=== PATIENT | male | born 1980 | race Caucasian/White ===

== ENCOUNTER 2017-04-21 07:05 | Outpatient (CLI) | payer MEDICARE, MEDICAID ==
[~2017-04-21] VITALS: Ht 172.7 cm; Wt 93.7 kg
--- NOTE | ~2017-04-21 | CATH ---
Cardiac Diagnostic + PCI Report Demographics Patient Name GENIA Acosta Gender Male Date of 1980 Age 36 year(s) Patient Number [id number] Date of Study 04/21/2017 Visit Number [id number] Room Number G63[address] [place] [id number] Ht 172.72 cm Wt 94.1 kg Referring Umm C[place] Primary Physician Physician Raman HAGAN Performing Primo Apodaca MD Secondary Physician Physician Diagnostic Primo Apodaca MD Assisting Physician Physician Interventional Primo Apodaca MD Physician Dye House Supervisor Physician Findings and Conclusions Diagnostic Findings and Conclusion Severe 1 vessel CAD. Diagnostic Recommendations PCI sub totalled LAD. Interventional Findings and Conclusion 0.014 Prowater 2 X 15 Emerge 2.5 X 24 to 2.66 with 0% residual. Interventional Recommendations DAPT X 1 year. Manual pressure for hemostasis. Risk factor modification. Procedure Description The patient was brought to the diagnostic cardiac catheterization-EP laboratory in the fasting, non-sedated state. Informed consent was obtained in the written and verbal form after the risks and benefits were explained. The patient had no further questions and agreed to proceed. The planned puncture-incision site(s) were shaved and prepped with ChloraPrep and draped in the usual sterile manner. Conscious sedation and supplemental oxygen, were delivered by a registered nurse under physician guidance. Surface ECG rhythm, blood pressure measurement, and pulse oximetry were monitored throughout the procedure. Arterial access. The access site was infiltrated with lidocaine. The vessel was entered with the Seldinger technique. A sheath was advanced into the vessel and used for catheter placement. Venous access. The access site was infiltrated with 2% lidocaine. The vessel was entered with the Seldinger technique. A sheath was advanced into the vessel and used for catheter placement. Selective left coronary angiography. A catheter was advanced into the left coronary vessel ostium under Fluoroscopic guidance. Contrast was injected by hand. Images were obtained in multiple projections. Selective right coronary angiography. A catheter was advanced into the right coronary vessel ostium under fluoroscopic guidance. Contrast was injected by hand. Images were obtained in multiple projections. Left heart catheterization. A catheter was advanced across the aortic valve to the left ventricle under fluoroscopic guidance. Resting hemodynamics were obtained. Right heart catheterization. A [place] Christie catheter was successfully advanced to the right atrium, right ventricle, pulmonary artery, and pulmonary artery wedge position under fluoroscopic guidance. Resting hemodynamics were obtained. Measurements included pressures, arterial and venous oxygen saturation samples, and cardiac output. The [place] was removed without difficulty. Angioplasty and Stent Placement: A guiding catheter was used to intubate the vessel. A 0.14 wire was then used to cross the lesion. A balloon catheter was placed across the lesion and inflated. The balloon catheter was then removed. A Drug Eluting Stent was placed and inflated. Post placement angiograms were performed. Arterial and Venous hemostasis was achieved. The patient was transferred to a regular nursing floor via cart accompanied by a nurse. The patient left the laboratory in stable condition. Diagnostic Cath Status: Elective Interventional Cath Status: Urgent Procedure Procedure Type Diagnostic procedure:Angiography:, Coronary Angios w/LHC, RHC PCI procedure:Drug Eluting Coronary Stent:, LAD Indications: Cardiomyopathy, Shortness of breath, Hypertension and Tachycardia. The procedure was explained in detail to the patient. Risks, complications and alternative treatments were reviewed. Written consent was obtained. Medications Reviewed with Patient prior to Procedure. Angiographic Findings Dominance: Mixed Cardiac Arteries and Lesion Findings LMCA: Normal (0% Stenosis).Large normal. LAD: Medium, mid sub totaled with left to left collaterals. Lesion on Mid LAD: Mid subsection.99% stenosis 24 mm length reduced to 0%. Pre procedure CITLALI I flow was noted. Post Procedure CITLALI III flow was present. The guidewire cross was successful.The lesion was diagnosed as a high risk lesion.Culprit lesion. Devices used - Prowater Wire .014 x 180. Number of passes: 1. - Emerge Balloon 2.0 x 15. 2 inflation(s) to a max pressure of: 14 luisa. - Promus Premier 2.5 x 24 Stent. 2 inflation(s) to a max pressure of: 12 luisa. LCx: OM 1 small. OM 2 and OM 3 large normal. Lesion on Mid CX: Mid subsection.40% stenosis . Comments:co-dominant , large. RCA: Normal (0% Stenosis).large co-dominant normal. PL medium normal. PDA medium normal. Coronary Tree Procedure Data Procedure Date Date: 04/21/2017Start: 09:25 AMEnd: 10:39 AM Entry Locations - Retrograde Percutaneous access was performed through the Right Femoral artery (Primary location). A 6 Fr sheath was inserted. Hemostasis was successfully obtained using Suture. Closure Comments: Sheath sutured in place by River Arias. - Antegrade Percutaneous access was performed through the Right Femoral vein. A 7 Fr sheath was inserted. Hemostasis was successfully obtained using Suture. Closure Comments: Sheath sutured in place by Mariana Arias. Procedure Medications Order and Administration + + + + + !Time !Medication !Dosage !Route ! + + + + + !04/21/2017 09:48 !Versed !1 mg !I.V. ! !AM ! ! ! ! + + + + + !04/21/2017 09:53 !Angiomax (Bivalirudin) !70 mg !I.V. bolus ! !AM !(ACC_5) ! ! ! + + + + + !04/21/2017 09:53 !Angiomax (Bivalirudin) !1.75 mg/kg/hr!I.V. drip ! !AM !(ACC_5) ! ! ! + + + + + !04/21/2017 09:53 !Oxygen !2 l/min !NC ! !AM ! ! ! ! + + + + + !04/21/2017 09:56 !Nipride !50 mcg !I.C. ! !AM ! ! ! ! + + + + + !04/21/2017 09:58 !Oxygen !4 l/min !NC ! !AM ! ! ! ! + + + + + !04/21/2017 10:01 !Nipride !70 mcg !I.C. ! !AM ! ! ! ! + + + + + !04/21/2017 10:07 !Nipride !80 mcg !I.C. ! !AM ! ! ! ! + + + + + !04/21/2017 10:10 !Angiomax (Bivalirudin) ! !I.V. drip ! !AM !(ACC_5) ! ! ! + + + + + !04/21/2017 10:36 !Brilinta (Ticagrelor) !180 mg !P.O. ! !AM !(ACC_20) ! ! ! + + + + + Devices Used - A6 Fr. BS JL 4 Diag. Catheterwas used for:Left coronary angiography. - A6 Fr. BS JR 4 Diag. Catheterwas used for:Right coronary angiography. - A6 Fr. XB 3 Guide Catheterwas used for:LAD Intervention. - A6 Fr. BS Angled Pigtail Diag. Catheterwas used for:Left ventriculography. Contrast Material - Isovue [id number] ml Fluoroscopy Time: Diagnostic: 15:00 minutes. Total: 15:00 minutes. Fluoroscopy Dose: Diagnostic: 2522 mGy. Total: 2522 mGy. Estimated Blood Loss: 5 ml. Medical History Performed Procedures and Imaging Results - Stress testing with SPECT MPIwas performed. Results were: Positive. Risk/Extent of ischemia was: High risk. History of Disease + + + + !Diagnosis !Date !Comments ! + + + + !Hypertension ! ! ! + + + + !Sleep apnea ! ! ! + + + + Allergies - No known allergies. Risk Factors The patient risk factors include:hypertension, last creatinine: 1.1 mg/dl, creatinine clearance: 122.38 ml/min and dyslipidemia. Admission Data Admission Date: 04/21/2017 Admission Time: 07:05 AM Admit Source: Other Insurance Payors: Medicare. Admission Medications + +------+------+ + + + + !Medication !Dosage!Times !Last !Last !Administered !Comments ! ! ! !Per !Delivery !Delivery ! ! ! ! ! !Day !Date !Time ! ! ! + +------+------+ + + + + !Beta ! ! ! ! !Yes ! ! !Garry ! ! ! ! ! ! ! !(any) ! ! ! ! ! ! ! + +------+------+ + + + + Clinical Evaluation Leading to Procedure - The patient's CAD presentation was assessed as: Unstable angina. - The patient's anginal syndrome during the past two weeks was assessed as: Class II according to the [place] Cardiovascular [employer] Classification System (CCS). Anti-anginal medications were prescribed during the past two weeks. The medication is: Beta Blockers. Hemodynamics Condition: Rest O2 Consumption: Estimated: 290.30Heart Rate: 114 bpm Oxygen Saturation +--------+-----+----+ +----+ + !Location!pCO2 !pO2 !% Saturation !Hgb !O2 Content ! +--------+-----+----+ +----+ + !RA ! ! !62.7 !13.6! ! +--------+-----+----+ +----+ + !SVC ! ! !63.6 !13.6! ! +--------+-----+----+ +----+ + !IVC ! ! !61.4 !13.6! ! +--------+-----+----+ +----+ + !FA ! ! !91.7 !13.6! ! +--------+-----+----+ +----+ + !PA ! ! !62.2 !13.6! ! +--------+-----+----+ +----+ + Pressures (mmHg) +-----+ + !Site !Pressure ! +-----+ + !AO !/ (235) ! +-----+ + !RA !15 (10) ! +-----+ + !AO !/ (236) ! +-----+ + !RV !50/5 ,14 ! +-----+ + !AO !/ (236) ! +-----+ + !PCW ! (18) ! +-----+ + !LV !112/7 ,25 ! +-----+ + !LV !116/6 ,27 ! +-----+ + !AO !117/86 (100) ! +-----+ + !LV !116/9 ,30 ! +-----+ + !AO !111/82 (95) ! +-----+ + Cardiac Output + + +------+ !Time !Cardiac Output (l/min) !Use ! + + +------+ !04/21/2017 10:13 AM !10.04 !False ! + + +------+ !04/21/2017 10:14 AM !4.71 !True ! + + +------+ !04/21/2017 10:15 AM !3.94 !True ! + + +------+ !04/21/2017 10:16 AM !8.99 !False ! + + +------+ !04/21/2017 10:19 AM !5.35 !True ! + + +------+ !04/21/2017 10:20 AM !3.75 !False ! + + +------+ !04/21/2017 10:20 AM !4.08 !True ! + + +------+ Cardiac Output +-------+ + + + !Method !CO (l/min) !CI (l/min/m2) !SV (ml) ! +-------+ + + + !Bhaskar !5.32 !2.6 !46.82 ! +-------+ + + + !Thermal!4.52 !2.2 !42.05 ! +-------+ + + + Valve Gradients and Areas + +--------+--------+--------+---------+ + + !Valve !Peak !Mean !Area !Index !Flow !Source ! + +--------+--------+--------+---------+ + + !Aortic !0 !0 ! ! !394.95 !Bhaskar ! + +--------+--------+--------+---------+ + + !Aortic !0 !0 ! ! !335.56 !Thermal ! + +--------+--------+--------+---------+ + + Shunts Oxygen Values O2 Capacity 184.96 O2 Consumption 290.3 Flows (l/min) Qs 5.48 Vascular Resistance (dynes x sec x cm-5) + +-----+-----+----+---+---------+-------+ !CO method !TSVR !SVR !TPVR!PVR!TPVR/TSVR!PVR/SVR! + +-----+-----+----+---+---------+-------+ !Bhaskar !17.85!15.95! ! ! ! ! + +-----+-----+----+---+---------+-------+ !Thermal !21.01!18.77! ! ! ! ! + +-----+-----+----+---+---------+-------+ !Qp or Qs !17.33!15.48! ! ! ! ! + +-----+-----+----+---+---------+-------+ Discharge Data Discharge Date: 04/22/2017 Hospital Status: Outpatient Signatures dtt: Paulie Tillman (cardio) dtd: 04/21/17 0925 Physician Self Edit
[~2017-04-21 07:05] MED LIST: ATIVAN 0.5MG0.5 MG PO; EFFEXOR XR75 MG PO; KLONOPIN0.5 MG PO; LITHOBID300 MG PO; LOPRESSOR25 MG PO
--- NOTE | 2017-04-21 18:27 | NUR ---
Significant Event: ARRIVED PCU AT 1453. STENT TO LAD VIA RT. GROIN. A/O X 3. BLAND AFFECT. DENIES PAIN. Follow up: OFF BEDREST AT 1900.
[2017-04-22 03:38] LABS: BASOPHIL # 0.1 K/uL (0.0-0.2); BASOPHIL % 0.4 %; EOSINOPHIL # 0.2 K/uL (0.0-0.5); EOSINOPHIL % 1.9 %; HEMATOCRIT 41.2 % (37.0-53.0); HEMOGLOBIN 13.6 g/dL (12.0-17.0); IMMATURE GRANULOCYTE % 0.3 %; LYMPHOCYTE # 2.5 K/uL (0.8-4.0); LYMPHOCYTE % 19.1 %; MCH 30.4 pg (27.0-34.0); MONOCYTE # 0.9 K/uL (0.0-1.0); MONOCYTE % 7.1 %; MPV 10.7 fl (9.4-12.4); NEUTROPHIL # (ANC) 9.2 K/uL (1.4-9.0); NEUTROPHIL % 71.2 %; NRBC % 0 /100WBC (0-0.00); PLATELET COUNT 260 K/uL (150-450); RBC 4.48 M/uL (4.00-6.00); RDW-CV 13.2 % (11.9-14.6); WBC 12.9 K/uL (4.0-11.0)
[2017-04-22 03:53] LABS: ALBUMIN 3.6 gm/dL (3.5-5.0); ALK PHOS 75 IU/L (33-138); ALT 23 IU/L (12-78); ANION GAP 10.4 (10.0-19.0); AST 9 IU/L (10-40); BLOOD UREA NITROGEN 13 mg/dL (6-24); CHLORIDE 109 mMol/L (96-110); CO2 24 mMol/L (22-32); ESTIMATED GFR (MDRD EQUATION) > 60; POTASSIUM 3.4 mMol/L (3.7-5.1); SODIUM 140 mMol/L (135-145); TOTAL BILIRUBIN 0.6 mg/dL (0.0-1.5)
--- NOTE | 2017-04-22 06:46 | NUR ---
Significant Event: A/0X3. FLAT EFFECT. SBA UP TO BR. TURNS SELF. AFEBRILE. VSS ON RA. PATIENT HAS SLEEP APNEA AT HS. PUT PATIENT ON 2L HS. DENIES PAIN. IV TO L) HAND SL. R) GROIN SOFT. NO BRUSING OR HEMATOMA. DRESSING C/D/I. GAVE A DOSE OF BENEDRYL. PATIENT SLEPT OFF ANF ON THROUGHOUT THE SHIFT. VOIDS FINE. BMX 2. D/C MEDS PRINTED AND ON CHART. LABS AND EKG THIS AM. Follow up: CONTINUE WITH PLAN OF CARE.
[2017-04-22] MEDS ORDERED: ASPIRIN (CHILDR81 MG PO (07:52)
[2017-04-22] MEDS ORDERED: LIPITOR80 MG PO (07:54)
[2017-04-22] MEDS ORDERED: VASOTEC2.5 MG PO (07:54)
[2017-04-22] MEDS ORDERED: BRILINTA90 MG PO (08:00)
--- NOTE | 2017-04-22 09:51 | NUR ---
DISM. NOTE: PT. A/O X 3. FATHER AND HIS ALSO, LISTEN IN ON THE HOME INSTRUCT. REVIEW OF HOME MEDS AND NEW MEDS WITH HANDOUTS AND SIDE EFFECTS DISCUSSED. PRESCRIPTION GIVEN. DIET/ ACTIVITY FOLLOW UP APPT. HOME INSTRUCTIONS POST RT. GROIN HEART CATH WITH STENT PLACEMENT. STENT CARD GIVEN. [place] CARD FOR PHARMACY AND EXPLAINED HOW TO USE IT. PT. AND FAMILY VOICED UNDERSTANDINS.
== END 2017-04-22 09:30 | disposition disaster alternative care site (69) ==
LOC: GPOC 07:05 → GPCU 07:05 → GPOC 13:00 → GPCU 13:11 → GPOC 04-22 09:30
PROVIDERS: Internal Medicine Interventional Cardiology
DX: I25.110 Atherosclerotic heart disease of native coronary artery with unstable angina pectoris (principal); I11.0 Hypertensive heart disease with heart failure; I50.20 Unspecified systolic (congestive) heart failure; I42.8 Other cardiomyopathies; G47.33 Obstructive sleep apnea (adult) (pediatric); E78.5 Hyperlipidemia, unspecified; R00.0 Tachycardia, unspecified; E78.1 Pure hyperglyceridemia; Z79.82 Long term (current) use of aspirin; F41.9 Anxiety disorder, unspecified; F32.9 Major depressive disorder, single episode, unspecified
CPT/HCPCS: C1725; C1769; C1874; C1887; C9600; J0583; J1644; J2001; J2250; J3010; J7030; J7060